=== PATIENT | male | born 1970 | race Caucasian/White ===

== ENCOUNTER 2023-10-29 08:35 | Emergency (ER) | payer BC, SELFPAY ==
[2023-10-29 08:42] VITALS: BP 149/56
[2023-10-29 08:55] VITALS: BMI 27.1
--- NOTE | 2023-10-29 08:59 | EDRN ---
Kayla Shankar PA in room w/ pt at this time.
[2023-10-29] MEDS: MOTRIN 600 MG PO (09:02)
--- NOTE | 2023-10-29 09:10 | ED.GENMED ---
History of Present Illness
General
Chief Complaint: Musculo-Skeletal Complaint
Time Seen by Provider: 10/29/23 08:49
Travel History
Have you had any contact with someone who has COVID-19?: No
Do you have any symptoms of coronavirus? Fever > 100 degrees, chills, cough, shortness of breath, sore throat, loss of taste or smell, muscle aches, or headache?: No
History of Present Illness
History of Present Illness:
52-year-old otherwise healthy male presents to the emergency department for evaluation of left wrist pain after a fall last night. He was celebrating trackable competition and fell backwards bracing his fall with his left hand and wrist. States I
know I did something wrong'. Denies any distal paresthesias
Review of Systems
Review of Systems
Allergies reviewed?: Yes
All Other Systems: ROS reviewed and negative except as documented in HPI and ROS
Phy Exam
Physical Exam
Physical Exam:
GEN: Well appearing, NAD, WDWN
HEENT: Oral mucosa moist, no scleral icterus
Cardiac: Regular rate
Lung: No respiratory distress, no tachypnea
MSK: Obvious deformity of the left wrist, neurovascularly intact distal, strong radial pulse
Skin: Good color, no pallor or jaundice, no rashes
Neuro: AO x3, moves all extremities freely
Psych: Calm, cooperative
Course
Orders/Labs/Results
Orders:
Orders
10/29/23 08:46
Wrist, Left 3 Views CR [CR Wrist - Left Min 3 Views] Urgent
Comment:
Reason For Exam: pain injury
10/29/23 09:00
Ibuprofen [Motrin] 600 mg .ROUTE .STK-MED ONE
10/29/23 09:02
Ibuprofen [Motrin] 600 mg PO NOW STA
Vital Signs
Initial and Last Documented VS:
Initial Vital Signs
Temp Pulse Resp BP Pulse Ox
97.8 F 81 16 149/56 96
10/29/23 08:42 10/29/23 08:42 10/29/23 08:42 10/29/23 08:42 10/29/23 08:42
Last Documented Vital Signs
Temp Pulse Resp BP Pulse Ox
97.8 F 81 16 149/56 96
10/29/23 08:42 10/29/23 08:42 10/29/23 08:42 10/29/23 08:42 10/29/23 08:42
Procedures
Splinting/Sling Placement
Left Wrist:
Procedure completed by: Randolph Shankar PA-C
Pre-splint extermity exam: neurovascular intact
Type of splint: sugar-tong
Splint material: fiberglass
Splint checked by provider?: Yes
Type of sling: sling fitted
MDM/Problems Addressed
MDM/Problems Addressed:
X-rays of the left wrist independently interpreted by me show a comminuted partially impacted dorsally angulated left distal radius fracture. Sugar-tong Ortho-Glass splint applied with gentle volar reduction. Patient be neurovascular intact
splinting. Recommend outpatient orthopedic/hand follow-up
*Critical Care Note
Total Time (30-74mins, 75-104mins- exclusive of procedures): Not Applicable
ED Attending Note
-
Portions of this chart may have been created with voice recognition software.� Occasional wrong word or��sound alike� substitutions may have occurred due to the inherent limitations of voice recognition software.
Discharge Plan
Departure
Patient Disposition: Home (Routine Discharge)
Date of Disposition: 10/29/23
Time of Disposition: 09:11
Patient with high blood pressure during this ER visit?: No
Discharge Problem:
Distal radius fracture, left
Instructions: Wrist Fracture (DC)
Referrals:
Jason Leal MD [Active] -
Interventions
Interventions:
*Risk Screen - Suicide Last Done: 10/29/23 08:56
*General Assessment Last Done: 10/29/23 08:56
*Neglect/Abuse Screening Last Done: 10/29/23 08:56
ED- Fall Risk Assessment Last Done: 10/29/23 08:57
*ED COVID-19 Vaccine History Last Done: 10/29/23 08:42
ED-Musculoskeletal Assessment Last Done: 10/29/23 08:58
Discharge Date and Time
Print Language: KYRGYZ
--- NOTE | 2023-10-29 09:14 | EDRN ---
Pt discharged solely by Kayla LANDAVERDE.
== END 2023-10-29 09:17 | disposition home or self-care (01) ==
LOC: EMR 08:35
PROVIDERS: EMERGENCY PHYSICIAN Emergency Medicine
DX: S52.592A Other fractures of lower end of left radius, initial encounter for closed fracture (principal); W19.XXXA Unspecified fall, initial encounter
CPT/HCPCS: 99283; 29125; 73110

== ENCOUNTER 2024-04-24 12:37 | Emergency (ER) | payer BC, SELFPAY ==
[2024-04-24 12:38] VITALS: BP 142/93
--- NOTE | 2024-04-24 13:21 | ED.GENMED ---
History of Present Illness
General
Chief Complaint: Skin Surface Trauma
Source: patient
Time Seen by Provider: 04/24/24 13:14
History of Present Illness
History of Present Illness:
53-year-old male with no significant past medical history presenting the emergency department for evaluation after he excellently cut his right little finger on a mandolin stating that he was just trying to grab something out of the pantry when he
grabbed a mandolin but did not realize the guard was not in place. Patient is right-hand dominant, unknown last tetanus but declines a tetanus up today, no other injuries sustained.
Past History
Past History
ED Past Medical History: None
ED Past Surgical History: None
Social History
Tobacco: Non-smoker
Alcohol: Occasional
Drug: None
Personal:
Living: with family
Review of Systems
Review of Systems
All Other Systems: ROS reviewed and negative except as documented in HPI and ROS
Phy Exam
Physical Exam
Physical Exam:
GENERAL: Alert , in no apparent distress
EYE: conjunctiva clear
Head: Normocephalic atraumatic
NECK: Supple,
ENT: mmm.
LUNGS: no acute respiratory distress
NEUROLOGICAL: Alert and oriented
SKIN: Warm and dry, superficial skin avulsion measuring approximately 8 mm to the lateral aspect of the right little finger, dressing in place and once removed there was no active bleeding but just very mild oozing. Full range of motion of the
digit.
MUSCULOSKELETAL: well perfused.
PSYCH: Normal and appropriate interaction.
Scores
Heart Failure Risk
Heart Failure Risk Score: Not Applicable
Heart Score for Chest Pain Patients
STEMI patient?: Not applicable
Withdrawal Assessment of Alcohol
Withdrawal Assessment Completed?: Not applicable
Course
Vital Signs
Initial and Last Documented VS:
Initial Vital Signs
Temp Pulse Resp BP Pulse Ox
98 F 89 16 142/93 95
04/24/24 12:38 04/24/24 12:38 04/24/24 12:38 04/24/24 12:38 04/24/24 12:38
Last Documented Vital Signs
Temp Pulse Resp BP Pulse Ox
98 F 88 18 140/90 96
04/24/24 12:38 04/24/24 13:39 04/24/24 13:39 04/24/24 13:39 04/24/24 13:39
MDM/Problems Addressed
Differential Diagnosis Includes:
Superficial laceration, no concern for tendon or nerve injury
MDM/Problems Addressed:
53-year-old male presenting to the ER for evaluation of supra right little finger skin avulsion from a mandolin. Laceration was irrigated with normal saline. Will place Gelfoam and dressing over top. Patient advised on wound care. Aware of
return precautions to the ER. Stable for discharge home.
*Pulse Oximetry
Patient hypoxic: no
*Critical Care Note
Total Time (30-74mins, 75-104mins- exclusive of procedures): Not Applicable
ED Attending Note
-
Portions of this chart may have been created with voice recognition software.� Occasional wrong word or��sound alike� substitutions may have occurred due to the inherent limitations of voice recognition software.
Discharge Plan
Departure
Patient Disposition: Home (Routine Discharge)
Date of Disposition: 04/24/24
Time of Disposition: 13:22
Patient with high blood pressure during this ER visit?: Yes
Discharge Problem:
Laceration of right little finger
Instructions: Wound Care (DC)
Interventions
Interventions:
*Risk Screen - Suicide Last Done: 04/24/24 12:40
*General Assessment Last Done: 04/24/24 13:11
*Neglect/Abuse Screening Last Done: 04/24/24 12:40
*ED COVID-19 Vaccine History Last Done: 04/24/24 12:39
*Nursing Disposition Last Done: 04/24/24 13:39
ED-Skin Assessment Last Done: 04/24/24 13:11
Discharge Date and Time
Discharge Date/Time: 04/24/24 13:40
Print Language: NEPALI
[2024-04-24 13:39] VITALS: BP 140/90
== END 2024-04-24 13:40 | disposition home or self-care (01) ==
LOC: EMR 12:37
PROVIDERS: EMERGENCY PHYSICIAN Emergency Medicine; FAMILY PHYSICIAN Family Medicine
DX: S61.216A Laceration without foreign body of right little finger without damage to nail, initial encounter (principal); W27.4XXA Contact with kitchen utensil, initial encounter
CPT/HCPCS: 99282